=== PATIENT | male | born 1965 | race Caucasian/White ===

== ENCOUNTER 2019-10-24 09:37 | Outpatient (CLI) | payer MEDICARE, SELFPAY ==
--- NOTE | 2019-10-24 09:50 | FL_ITS ---
WS: [id number] FL barium swallow [id number] REASON FOR EXAM: DIFFICULTY SWALLOWING FLUOROSCOPY TIME: 1.2 minutes FINDINGS: History suggest aspiration but no aspiration is identified. A metal plate is seen transversing a previous fracture of the cervical spine. At fluoroscopy the vallecula is were both normal. No obstruction. No masses in the cervical thoracic area and no perforations are noted. The distal esophagus show no hiatal hernias or obstructing lesions. The stomach appeared to be normal as well as the small bowel. FL/FL barium swallow [id number] IMPRESSION: There was no abnormalities noted at during the swallowing changes. The esophagus showed no definite ulcerated areas fistulas or obstructing lesion s. The stomach and duodenum and small bowel were all normal. This was a difficult exam due to the large habitus of the patient.
== END 2019-10-24 09:38 | disposition home or self-care (01) ==
PROVIDERS: PCP Family Medicine; Visit Provider Specialist
DX: R13.10 Dysphagia, unspecified
CPT/HCPCS: 74220

== ENCOUNTER 2019-11-28 10:11 | Outpatient (CLI) | payer MEDICARE, SELFPAY ==
--- NOTE | 2019-11-28 10:22 | FL_ITS ---
WS: [id number] MODIFIED BARIUM SWALLOW HISTORY: Other dysphagia FLUOROSCOPY TIME: 2.8 minutes. Modified barium swallow was performed by the speech pathologist. Fluoroscopy was provided with the pa tient in a lateral projection. Multiple food consistencies were provided. No aspiration or laryngeal penetration. There is mild delay in swallowing in the mid cervical spine a t the level of the hardware. Barium tablet was swallowed without difficulty. FL/FL barium swallow modifd [id number] IMPRESSION: 1. Mild delay of cervical esophageal emptying is probably due to the cervical fusion hardware. 2. No aspiration or laryngeal penetration. Please see speech therapist report also for recommendations.
== END 2019-11-28 10:12 | disposition home or self-care (01) ==
LOC: RAD 10:17
PROVIDERS: PCP Family Medicine; Visit Provider Specialist
DX: R13.19 Other dysphagia (principal)
CPT/HCPCS: 74230; 92611

== ENCOUNTER → 2020-01-25 13:46 | Outpatient (BNVA) | payer MEDICARE, SELFPAY | PROVIDERS: PCP Family Medicine; Referring Provider Family Medicine; Visit Provider Specialist | DX: G43.019 Migraine without aura, intractable, without status migrainosus (principal); M96.1 Postlaminectomy syndrome, not elsewhere classified; M54.5 Low back pain; M47.816 Spondylosis without myelopathy or radiculopathy, lumbar region; M51.9 Unspecified thoracic, thoracolumbar and lumbosacral intervertebral disc disorder | CPT/HCPCS: 99204 ==

== ENCOUNTER → 2020-03-07 09:20 | Outpatient (BNVA) | payer MEDICARE, SELFPAY | PROVIDERS: PCP Family Medicine; Referring Provider Specialist; Visit Provider Anesthesiology Pain Medicine | DX: M54.42 Lumbago with sciatica, left side (principal); M54.41 Lumbago with sciatica, right side; M47.816 Spondylosis without myelopathy or radiculopathy, lumbar region; M51.9 Unspecified thoracic, thoracolumbar and lumbosacral intervertebral disc disorder; M96.1 Postlaminectomy syndrome, not elsewhere classified | CPT/HCPCS: 99203 ==

== ENCOUNTER → 2020-04-06 09:50 | Outpatient (BNVA) | payer MEDICARE, SELFPAY | PROVIDERS: PCP Family Medicine; Visit Provider Anesthesiology Pain Medicine | DX: M47.816 Spondylosis without myelopathy or radiculopathy, lumbar region (principal); M51.9 Unspecified thoracic, thoracolumbar and lumbosacral intervertebral disc disorder; M96.1 Postlaminectomy syndrome, not elsewhere classified | CPT/HCPCS: 99213 ==

== ENCOUNTER → 2020-05-22 14:13 | Outpatient (BNVA) | payer MEDICARE, SELFPAY | PROVIDERS: PCP Family Medicine; Visit Provider Specialist | DX: G43.019 Migraine without aura, intractable, without status migrainosus (principal) | CPT/HCPCS: 99213 ==

== ENCOUNTER → 2020-07-23 09:09 | Outpatient (BNVA) | payer MEDICARE, SELFPAY | PROVIDERS: PCP Family Medicine; Visit Provider Anesthesiology Pain Medicine | DX: M47.816 Spondylosis without myelopathy or radiculopathy, lumbar region (principal); M54.5 Low back pain; M51.9 Unspecified thoracic, thoracolumbar and lumbosacral intervertebral disc disorder; M96.1 Postlaminectomy syndrome, not elsewhere classified | CPT/HCPCS: 99213 ==

== ENCOUNTER → 2020-10-26 08:26 | Outpatient (BNVA) | payer MEDICARE, SELFPAY | PROVIDERS: PCP Family Medicine; Visit Provider Anesthesiology Pain Medicine | DX: M47.816 Spondylosis without myelopathy or radiculopathy, lumbar region (principal); M51.9 Unspecified thoracic, thoracolumbar and lumbosacral intervertebral disc disorder; M54.5 Low back pain; M96.1 Postlaminectomy syndrome, not elsewhere classified | CPT/HCPCS: 99213 ==

== ENCOUNTER → 2020-10-30 14:00 | Outpatient (BNVA) | payer MEDICARE, SELFPAY | PROVIDERS: PCP Family Medicine; Referring Provider Family Medicine; Visit Provider Podiatrist Foot & Ankle Surgery | DX: S92.531A Displaced fracture of distal phalanx of right lesser toe(s), initial encounter for closed fracture (principal); M79.671 Pain in right foot; X58.XXXA Exposure to other specified factors, initial encounter | CPT/HCPCS: 73630 ==

== ENCOUNTER 2020-10-30 15:11 | Outpatient (CLI) | payer MEDICARE, SELFPAY | END 2020-10-30 15:12 | disposition home or self-care (01) | LOC: SPT 15:12 | PROVIDERS: PCP Family Medicine; Visit Provider Podiatrist Foot & Ankle Surgery | DX: Z46.89 Encounter for fitting and adjustment of other specified devices (principal); M79.672 Pain in left foot | CPT/HCPCS: 97760; L4361 ==

== ENCOUNTER → 2020-11-20 13:33 | Outpatient (BNVA) | payer MEDICARE, SELFPAY | PROVIDERS: PCP Family Medicine; Visit Provider Podiatrist Foot & Ankle Surgery | DX: R52 Pain, unspecified (principal); M79.671 Pain in right foot; S92.911A Unspecified fracture of right toe(s), initial encounter for closed fracture; S92.811A Other fracture of right foot, initial encounter for closed fracture; S92.251A Displaced fracture of navicular [scaphoid] of right foot, initial encounter for closed fracture; S90.819A Abrasion, unspecified foot, initial encounter | CPT/HCPCS: 73630 ==

== ENCOUNTER → 2020-11-21 14:11 | Outpatient (BNVA) | payer MEDICARE, SELFPAY | PROVIDERS: PCP Family Medicine; Visit Provider Specialist | DX: G43.711 Chronic migraine without aura, intractable, with status migrainosus (principal); M96.1 Postlaminectomy syndrome, not elsewhere classified; M47.12 Other spondylosis with myelopathy, cervical region; Y93.9 Activity, unspecified; S06.0X9S Concussion with loss of consciousness of unspecified duration, sequela | CPT/HCPCS: 99215 ==

== ENCOUNTER → 2020-12-11 15:27 | Outpatient (BNVA) | payer MEDICARE, SELFPAY | PROVIDERS: PCP Family Medicine; Visit Provider Podiatrist Foot & Ankle Surgery | DX: S92.911A Unspecified fracture of right toe(s), initial encounter for closed fracture (principal); S90.819A Abrasion, unspecified foot, initial encounter; S92.251A Displaced fracture of navicular [scaphoid] of right foot, initial encounter for closed fracture; S92.811A Other fracture of right foot, initial encounter for closed fracture; X58.XXXA Exposure to other specified factors, initial encounter; Z46.89 Encounter for fitting and adjustment of other specified devices; S92.911D Unspecified fracture of right toe(s), subsequent encounter for fracture with routine healing; S92.811D Other fracture of right foot, subsequent encounter for fracture with routine healing; X58.XXXD Exposure to other specified factors, subsequent encounter | CPT/HCPCS: 73630; 97760; L1902 ==

== ENCOUNTER 2020-12-11 16:23 | Outpatient (CLI) | payer MEDICARE, SELFPAY | END 2020-12-11 16:24 | disposition home or self-care (01) | LOC: SPT 16:24 | PROVIDERS: PCP Family Medicine; Visit Provider Podiatrist Foot & Ankle Surgery | DX: Z46.89 Encounter for fitting and adjustment of other specified devices (principal); S92.911D Unspecified fracture of right toe(s), subsequent encounter for fracture with routine healing; S92.811D Other fracture of right foot, subsequent encounter for fracture with routine healing; X58.XXXD Exposure to other specified factors, subsequent encounter | CPT/HCPCS: 97760; L1902 ==

== ENCOUNTER → 2020-12-31 13:16 | Outpatient (BNVA) | payer MEDICARE, SELFPAY | PROVIDERS: PCP Family Medicine; Visit Provider Specialist | DX: G43.711 Chronic migraine without aura, intractable, with status migrainosus (principal); M47.12 Other spondylosis with myelopathy, cervical region; S06.0X9S Concussion with loss of consciousness of unspecified duration, sequela; V23.4XXS Motorcycle driver injured in collision with car, pick-up truck or van in traffic accident, sequela; Z71.89 Other specified counseling | CPT/HCPCS: 99214 ==

== ENCOUNTER → 2021-01-07 08:49 | Outpatient (BNVA) | payer MEDICARE, SELFPAY | PROVIDERS: PCP Family Medicine; Visit Provider Anesthesiology Pain Medicine | DX: M54.2 Cervicalgia (principal); M25.552 Pain in left hip; M51.9 Unspecified thoracic, thoracolumbar and lumbosacral intervertebral disc disorder; M47.816 Spondylosis without myelopathy or radiculopathy, lumbar region; M96.1 Postlaminectomy syndrome, not elsewhere classified; Z79.891 Long term (current) use of opiate analgesic | CPT/HCPCS: 99214 ==

== ENCOUNTER → 2021-01-21 12:58 | Outpatient (BNVA) | payer OTHER, MEDICARE, SELFPAY | PROVIDERS: PCP Family Medicine; Visit Provider Anesthesiology Pain Medicine | DX: G89.29 Other chronic pain (principal); M54.2 Cervicalgia; Z79.891 Long term (current) use of opiate analgesic | CPT/HCPCS: 62321; J1100 ==

== ENCOUNTER → 2021-04-02 12:59 | Outpatient (BNVA) | payer MEDICARE, SELFPAY | PROVIDERS: PCP Family Medicine; Visit Provider Specialist | DX: G43.711 Chronic migraine without aura, intractable, with status migrainosus (principal); M47.12 Other spondylosis with myelopathy, cervical region; R41.1 Anterograde amnesia; S06.0X9S Concussion with loss of consciousness of unspecified duration, sequela; Y93.9 Activity, unspecified; Z71.85 Encounter for immunization safety counseling | CPT/HCPCS: 99213; 99214 ==

== ENCOUNTER → 2021-07-02 07:52 | Outpatient (BNVA) | payer MEDICARE, SELFPAY | PROVIDERS: PCP Family Medicine; Visit Provider Specialist | DX: G43.709 Chronic migraine without aura, not intractable, without status migrainosus (principal); E66.8 Other obesity; Z68.41 Body mass index [BMI] 40.0-44.9, adult; Z71.85 Encounter for immunization safety counseling | CPT/HCPCS: 99213; 99214 ==

== ENCOUNTER → 2021-12-30 07:53 | Outpatient (BNVA) | payer MEDICARE, SELFPAY | PROVIDERS: PCP Family Medicine; Visit Provider Specialist | DX: G43.711 Chronic migraine without aura, intractable, with status migrainosus (principal); G47.33 Obstructive sleep apnea (adult) (pediatric); M51.9 Unspecified thoracic, thoracolumbar and lumbosacral intervertebral disc disorder; M96.1 Postlaminectomy syndrome, not elsewhere classified; E66.01 Morbid (severe) obesity due to excess calories; Z68.41 Body mass index [BMI] 40.0-44.9, adult | CPT/HCPCS: 99214 ==

== ENCOUNTER 2022-02-04 08:02 | Outpatient (CLI) | payer MEDICARE, SELFPAY ==
--- NOTE | 2022-02-04 09:00 | CTR_ITS ---
PROCEDURE INFORMATION: Exam: CT Neck Without Contrast Exam date and time: 02/04/2022 8:21 AM Age: 56 years old Clinical indication: Pain; Prior surgery; Surgery type: C spine; Patient HX: Lump behind RT ear, posterior aspect of head-bb, since 2013 neck surgery. The bigger it gets the worse his headache; Additional info: G43.711 - chronic migraine without aura, intractable, wit. . . TECHNIQUE: Imaging protocol: Computed tomography of the neck without contrast. Radiation optimization: All CT scans at this facility use at least one of these dose optimization techniques: automated exposure control; mA and/or kV adjustment per patient size (includes targeted exams where dose is matched to clinical indication); or iterative reconstruction. COMPARISON: MR cervical spin wo con* [id number] 12/21/2020 1:44 PM RADIATION DOSE METRICS: Total DLP (mGy-cm): 326.01 FINDINGS: Paranasal sinuses: Minimal right maxillary sinus base mucosal thickening is seen. Otherwise, the sinuses are clear. Mild leftward deviation of the midline nasal septum is seen. Pharynx: Unremarkable on noncontrast imaging. No significant tonsillar or nasopharyngeal adenoidal enlargement. Larynx: Unremarkable on noncontrast imaging. Normal epiglottis. Prevertebral and retropharyngeal spaces: Unremarkable on noncontrast imaging. Salivary glands: Glands are normal in size. Unremarkable on noncontrast imaging. Left parotid gland 1 x 1.4 cm soft tissue attenuation lesion is seen. This could represent an intraparotid lymph node or could represent a true mass. Recommend sonography for further assessment. Thyroid: Normal. No enlarged or calcified nodules. Lymph nodes: Some subcentimeter bilateral jugular chain, posterior cervical and posterior reticular lymph nodes are seen. Trachea: Visualized trachea is unremarkable. Lungs: Normal as visualized. Bones/joints: No acute fracture. Postsurgical changes are seen status post anterior cervical disc fusion from C5 through C7 with anterior fusion plate, vertebral body screws and disc space graft material. There is associated artifact. Medium-sized anterior inferior C4 degenerative osteophyte is seen. There is no spinal canal narrowing seen or significant foraminal stenosis on this CT. Multiple radiopaque dental restorations are seen with associated artifact. Multiple missing teeth are seen. Horizontally oriented bilateral lower 3rd molars are seen. Vasculature: Limited assessment on noncontrast imaging. Soft tissues: No significant soft tissue swelling. No obvious fluid collection by limited noncontrast evaluation. No radiopaque foreign body. Notes: The exam is limited due to lack of IV contrast administration. CT/CT neck wo con [id number] IMPRESSION: 1. Left parotid gland 1 x 1.4 cm soft tissue attenuation lesion. This could represent an intraparotid lymph node or could represent a true mass. Recommend sonography for further assessment. 2. Multiple subcentimeter lymph nodes including some posterior regular subcentimeter lymph nodes. No fluid collections or abscess. 3. Postsurgical changes of the cervical spine, as noted above. 4. Dental abnormalities, as noted above.
== END 2022-02-04 08:03 | disposition home or self-care (01) ==
LOC: RAD 08:03
PROVIDERS: PCP Family Medicine; Visit Provider Specialist
DX: G43.711 Chronic migraine without aura, intractable, with status migrainosus (principal); M47.12 Other spondylosis with myelopathy, cervical region
CPT/HCPCS: 70490

== ENCOUNTER 2022-02-06 09:39 | Outpatient (CLI) | payer MEDICARE, SELFPAY ==
--- NOTE | 2022-02-06 09:49 | MR_ITS ---
WS: [id number] MRI THORACIC SPINE WITHOUT CONTRAST TECHNIQUE: Sagittal T1, T2 and STIR imaging. Axial T2 imaging. Noncontrast imaging obtained. CLINICAL INFORMATION: SEVERE BACK PAIN COMPARISON: None. FINDINGS: Mild thoracic curve. No acute compression. No high-grade central canal stenosis. Cord signal is otto l. A few small disc protrusions in the upper and mid thoracic spine. No high-grade central canal sten osis. Mild facet arthropathy in the lower thoracic spine.Cord signal is normal. Normal caliber descen ding thoracic aorta. Normal prevertebral soft tissues. Small shallow thoracic protrusions most prominent at T3-T4, T4-T5, T5-T6, T6-T7, and T7-T8. Small central protrusion T4-T5 with slight indentation on the thoracic cord. LEFT pericentral protrus ion at T5-T6 with slight indentation on the LEFT ventral thoracic cord. RIGHT pericentral protrusion T6-T7 with slight indentation on the RIGHT ventral thoracic cord. Mild bilateral T9-T10 and RIGHT T10-T11 bony foraminal narrowing. T12 is partially excluded on this e xamination. Subligamentous disc herniation on the printer helper imaging at RIGHT C3-C4 with indentation on cervical cord and mild to moderate central canal stenosis. Cervical spine can be further evaluated with cervical sp ine MRI. MR/MR thoracic spin wo con* [id number] IMPRESSION: 1. Mild thoracic curve. No acute compression. No high-grade central canal sten osis. 2. Cord signal is normal. 3. Small shallow protrusions in the upper and mid thoracic spine with slight c ontact and indentation of the thoracic cord with no significant central canal s tenosis. 4. Mild bony foraminal narrowing bilateral T9-T10 and RIGHT T10-T11. 5. Postoperative changes in the cervical spine with ACDF C4-C6. 6. Subligamentous disc herniation RIGHT C3-C4 on the printer helper imaging with mild c entral canal stenosis and indentation on the cervical cord. This can be further evaluated with cervical spine MRI.
== END 2022-02-06 09:40 | disposition home or self-care (01) ==
LOC: RAD 09:41
PROVIDERS: PCP Family Medicine; Visit Provider Family Medicine
DX: M51.24 Other intervertebral disc displacement, thoracic region (principal); Z98.1 Arthrodesis status; M50.21 Other cervical disc displacement, high cervical region
CPT/HCPCS: 72146

== ENCOUNTER → 2022-06-24 08:09 | Outpatient (BNVA) | payer MEDICARE, SELFPAY | PROVIDERS: PCP Family Medicine; Visit Provider Specialist | DX: G43.711 Chronic migraine without aura, intractable, with status migrainosus (principal); E66.01 Morbid (severe) obesity due to excess calories; M47.12 Other spondylosis with myelopathy, cervical region; Z68.41 Body mass index [BMI] 40.0-44.9, adult; I10 Essential (primary) hypertension | CPT/HCPCS: 99215 ==

== ENCOUNTER 2022-08-08 15:31 | Outpatient (CLI) | payer MEDICARE, SELFPAY ==
--- NOTE | 2022-08-08 16:00 | MR_ITS ---
WS: [id number] MRI CERVICAL SPINE NONCONTRAST TECHNIQUE: Sagittal T1, T2 and STIR imaging. Axial T2, gradient, and fiesta imaging. CLINICAL INFORMATION: M47.12 - Other spondylosis with myelopathy, cervical region COMPARISON: MRI December 21, 2020. CT neck February 04, 2022 FINDINGS: Straightening of the normal cervical lordosis. Anterior cervical fusion C5-C7. Cord signal is normal. C2-C3: Mild disc osteophytic ridging. Moderate facet arthropathy. Mild LEFT and no significant RIGHT foraminal narrowing. Spinal canal is patent. C3-C4: RIGHT pericentral disc protrusion extending into the subarticular recess and neural foramen. S evere RIGHT foraminal narrowing. Moderate LEFT bony foraminal narrowing. Moderate facet arthropathy. Mild central canal stenosis. C4-C5: Mild disc osteophytic ridging. Mild LEFT and no significant RIGHT foraminal narrowing. Moderat e facet arthropathy. Spinal canal is patent. C5-C6: Anterior cervical fusion. Moderate LEFT and no significant RIGHT foraminal narrowing. Spinal c anal is patent. Mild facet arthropathy. C6-C7: Disc osteophytic ridging eccentric to the RIGHT. Moderate RIGHT and no significant LEFT forami nal narrowing. Spinal canal is patent. C7-T1: Disc osteophytic ridging. Moderate LEFT and mild RIGHT bony foraminal narrowing. Spinal canal is patent. Visualized brain stem structures: Normal. Prevertebral soft tissues: Normal. MR/MR cervical spin wo con* [id number] IMPRESSION: 1. Straightening of the normal cervical lordosis. Anterior cervical fusion C5- C7. 2. RIGHT subarticular and foraminal protrusion C3-C4 with severe RIGHT foramin al narrowing. This was present but appears progressed since MRI December 21, 2020. Mild central canal stenosis. 3. Moderate LEFT C5-C6, RIGHT C6-C7, and LEFT C7-T1 bony foraminal narrowing.
== END 2022-08-08 15:32 | disposition home or self-care (01) ==
LOC: RAD 15:32
PROVIDERS: PCP Family Medicine; Visit Provider Specialist
DX: M47.12 Other spondylosis with myelopathy, cervical region (principal); M50.21 Other cervical disc displacement, high cervical region; M48.02 Spinal stenosis, cervical region
CPT/HCPCS: 72141

== ENCOUNTER → 2022-09-10 07:57 | Outpatient (BNVA) | payer MEDICARE, SELFPAY | PROVIDERS: PCP Family Medicine; Referring Provider Specialist; Visit Provider Specialist | DX: G43.711 Chronic migraine without aura, intractable, with status migrainosus (principal); M47.12 Other spondylosis with myelopathy, cervical region | CPT/HCPCS: 99214 ==

== ENCOUNTER → 2022-09-18 09:47 | Outpatient (BNVA) | payer MEDICARE, SELFPAY | PROVIDERS: PCP Family Medicine; Referring Provider Specialist; Visit Provider Physician Assistant | DX: M47.12 Other spondylosis with myelopathy, cervical region (principal) | CPT/HCPCS: 72050; 99204 ==

== ENCOUNTER 2022-10-01 15:31 | Outpatient (CLI) | payer MEDICARE, SELFPAY ==
--- NOTE | 2022-10-01 15:15 | MR_ITS ---
WS: [id number] MRI LUMBAR SPINE NONCONTRAST. HISTORY: Chronic low back pain. Pain down both legs and weakness. COMPARISON: None available. TECHNIQUE: Sagittal and axial multisequence imaging is submitted. Prior anterior cervical fusion from C5 to C7. Mild narrowing of the central cervical canal. Mild stra ightening of the normal thoracic kyphosis. Mild curvature lumbar spine. Slight increase in lordosis in the distal lumbar spine. Disc spaces and vertebral body heights are well-preserved. Conus terminates normally at L1-2 disc level. T12-L1: Mild disc bulging and facet arthritis. No high-grade stenosis. Mild encroachment into the pos terior lateral thecal sac by facet disease. L1-L2: Mild facet joint arthritis with no stenosis. L2-L3: Mild annular disc bulging with moderate facet joint arthritis. No significant stenosis. Very m inimal encroachment into the subarticular recesses. L3-L4: Mild disc bulging with moderate ligamentum flavum and facet joint arthritis encroaching upon t he thecal sac. Mild to moderate central with bilateral subarticular recess and mild foraminal stenosi s. L4-L5: Mild annular disc bulging with no focal disc protrusion. Severe LEFT and moderate RIGHT facet joint arthritis. LEFT facet joint hypertrophy is encroaching upon the lateral thecal sac and into the subarticular recess. Most significant contact on the traversing LEFT L5 nerve root. Moderate central and bilateral subarticular recess stenosis, greater on the LEFT. Mild to moderate bilateral foramina l stenosis. L5-S1: Mild annular disc bulging and osteophytic ridging. Moderate bilateral facet joint arthritis. S lightly greater hypertrophy of the LEFT facet joint encroaching into the proximal foramina. Moderate LEFT foraminal stenosis. Paravertebral soft tissues are negative. MR/MR lumbar spine wo con* [id number] IMPRESSION: 1. Moderate central with bilateral subarticular recess stenosis, LEFT greater than RIGHT at L4-5. Mild to moderate bilateral foraminal stenosis. Stenosis pre dominantly due to facet joint arthritis greater on the LEFT. Most significant e ncroachment upon the LEFT L5 nerve root. 2. Moderate LEFT foraminal stenosis at L5-S1 predominantly due to facet joint arthritis. 3. Multiple moderate central with bilateral subarticular recess and mild thee inal stenosis at L3-4.
== END 2022-10-01 15:32 | disposition home or self-care (01) ==
LOC: RAD 15:41
PROVIDERS: PCP Family Medicine; Visit Provider Anesthesiology Pain Medicine
DX: M48.061 Spinal stenosis, lumbar region without neurogenic claudication (principal); M48.07 Spinal stenosis, lumbosacral region
CPT/HCPCS: 72148

== ENCOUNTER 2022-10-08 14:19 | Outpatient (CLI) | payer MEDICARE, SELFPAY ==
--- NOTE | 2022-10-08 14:30 | MR_ITS ---
WS: [id number] MRI OF THE NECK WITHOUT AND WITH GADOLINIUM ENHANCEMENT. INDICATION: Lump posterior neck TECHNIQUE: Axial T1, axial T2, coronal T2, sagittal T2, coronal T1, coronal T1 fat sat. COMPARISON: MRI December 21, 2020 FINDINGS: Deep to the palpable marker is a well-circumscribed lipoma measuring approximately 4.5 x 2. 8 x 3.5 cm. No cervical lymphadenopathy. Normal posterior fossa. Normal vascular flow voids at the skull base. Noncontrast proximal 7th and 8t h cranial nerves appear normal. Mild mucosal thickening in the ethmoid air cells. Paranasal sinuses a re otherwise well aerated. Normal posterior nasopharynx. Normal parapharyngeal fat. Normal parotid gl ands. Incidental intraparotid lymph nodes. Submandibular glands are normal. Straightening of the normal cervical lordosis with ACDF C5-C7. Palpable marker RIGHT posterior neck. MR/MR head orbits wo con [id number] IMPRESSION: 1. Deep to the palpable marker is a well-circumscribed lipoma measuring approx imately 4.5 x 2.8 x 3.5 cm. 2. No cervical lymphadenopathy. 3. Normal salivary glands.
== END 2022-10-08 14:20 | disposition home or self-care (01) ==
LOC: RAD 14:21
PROVIDERS: PCP Family Medicine; Visit Provider Physician Assistant
DX: R22.1 Localized swelling, mass and lump, neck (principal)
CPT/HCPCS: 70336; 70551

== ENCOUNTER 2022-10-14 12:05 | Outpatient (CLI) | payer MEDICARE, SELFPAY ==
--- NOTE | 2022-10-14 12:15 | US_ITS ---
WS: [id number] ULTRASOUND SOFT TISSUES RIGHT neck. HISTORY: pain COMPARISON: None available. TECHNIQUE: 2-D and color Doppler imaging is submitted. Palpable area along the RIGHT cervical chain corresponds to an intermediate mass measuring 3.9 x 1.7 x 2.4 cm. Mass is nearly isoechoic to the adjacent muscles. There is slight distortion of the adjacen t fascial planes. US/US soft tissue head neck [id number] IMPRESSION: Soft tissue mass along the RIGHT cervical chain corresponds to a lipoma measuri ng 3.9 x 1.7 x 2.4 cm.
== END 2022-10-14 12:06 | disposition home or self-care (01) ==
PROVIDERS: PCP Family Medicine; Visit Provider Physician Assistant
DX: R22.1 Localized swelling, mass and lump, neck (principal); M54.2 Cervicalgia; M51.9 Unspecified thoracic, thoracolumbar and lumbosacral intervertebral disc disorder; M47.816 Spondylosis without myelopathy or radiculopathy, lumbar region; M96.1 Postlaminectomy syndrome, not elsewhere classified
CPT/HCPCS: 76536; 99214

== ENCOUNTER → 2022-10-29 12:43 | Outpatient (BNVA) | payer MEDICARE, SELFPAY | PROVIDERS: PCP Family Medicine; Visit Provider Anesthesiology Pain Medicine | DX: M54.12 Radiculopathy, cervical region (principal) | CPT/HCPCS: 62321; J1100 ==

== ENCOUNTER → 2022-11-19 08:31 | Outpatient (BNVA) | payer MEDICARE, SELFPAY | PROVIDERS: PCP Family Medicine; Visit Provider Anesthesiology Pain Medicine | DX: M51.9 Unspecified thoracic, thoracolumbar and lumbosacral intervertebral disc disorder (principal); M47.816 Spondylosis without myelopathy or radiculopathy, lumbar region; M96.1 Postlaminectomy syndrome, not elsewhere classified; M54.2 Cervicalgia | CPT/HCPCS: 99214 ==

== ENCOUNTER → 2022-12-04 15:01 | Outpatient (BNVA) | payer MEDICARE, SELFPAY | PROVIDERS: PCP Family Medicine; Visit Provider Anesthesiology Pain Medicine | DX: M47.812 Spondylosis without myelopathy or radiculopathy, cervical region (principal) | CPT/HCPCS: 64490; 64491; 64492; J3490 ==

== ENCOUNTER → 2022-12-18 09:15 | Outpatient (BNVA) | payer MEDICARE, SELFPAY | PROVIDERS: PCP Family Medicine; Visit Provider Anesthesiology Pain Medicine | DX: M47.812 Spondylosis without myelopathy or radiculopathy, cervical region (principal); M47.22 Other spondylosis with radiculopathy, cervical region; M47.816 Spondylosis without myelopathy or radiculopathy, lumbar region; M48.061 Spinal stenosis, lumbar region without neurogenic claudication | CPT/HCPCS: 99215 ==

== ENCOUNTER → 2023-01-01 12:56 | Outpatient (BNVA) | payer MEDICARE, SELFPAY | PROVIDERS: PCP Family Medicine; Visit Provider Anesthesiology Pain Medicine | DX: M47.812 Spondylosis without myelopathy or radiculopathy, cervical region (principal) | CPT/HCPCS: 64490; 64491; 64492; J3490 ==

== ENCOUNTER → 2023-01-13 10:19 | Outpatient (BNVA) | payer MEDICARE, SELFPAY | PROVIDERS: PCP Family Medicine; Visit Provider Anesthesiology Pain Medicine | DX: M47.812 Spondylosis without myelopathy or radiculopathy, cervical region (principal); M47.22 Other spondylosis with radiculopathy, cervical region; M54.50 Low back pain, unspecified | CPT/HCPCS: 99214 ==

== ENCOUNTER → 2023-02-09 13:59 | Outpatient (BNVA) | payer MEDICARE, SELFPAY | PROVIDERS: PCP Family Medicine; Visit Provider Anesthesiology Pain Medicine | DX: M47.812 Spondylosis without myelopathy or radiculopathy, cervical region (principal) | CPT/HCPCS: 64633; 64634; J1030 ==

== ENCOUNTER → 2023-02-24 12:44 | Outpatient (BNVA) | payer MEDICARE, SELFPAY | PROVIDERS: PCP Family Medicine; Visit Provider Anesthesiology Pain Medicine | DX: M47.812 Spondylosis without myelopathy or radiculopathy, cervical region (principal) | CPT/HCPCS: 64633; 64634; J1030 ==

== ENCOUNTER → 2023-03-16 09:06 | Outpatient (BNVA) | payer MEDICARE, SELFPAY | PROVIDERS: PCP Family Medicine; Visit Provider Anesthesiology Pain Medicine | DX: M47.812 Spondylosis without myelopathy or radiculopathy, cervical region; M47.22 Other spondylosis with radiculopathy, cervical region | CPT/HCPCS: 99214 ==

== ENCOUNTER → 2023-04-14 14:20 | Outpatient (BNVA) | payer MEDICARE, SELFPAY | PROVIDERS: PCP Family Medicine; Visit Provider Anesthesiology Pain Medicine | DX: M54.16 Radiculopathy, lumbar region (principal); M47.812 Spondylosis without myelopathy or radiculopathy, cervical region; M47.816 Spondylosis without myelopathy or radiculopathy, lumbar region | CPT/HCPCS: 62323; J1040; Q9967 ==

== ENCOUNTER → 2023-04-28 09:44 | Outpatient (BNVA) | payer MEDICARE, SELFPAY | PROVIDERS: PCP Family Medicine; Visit Provider Anesthesiology Pain Medicine | DX: M47.812 Spondylosis without myelopathy or radiculopathy, cervical region (principal); M47.22 Other spondylosis with radiculopathy, cervical region | CPT/HCPCS: 99214 ==

== ENCOUNTER → 2023-07-29 10:22 | Outpatient (BNVA) | payer MEDICARE, OTHER, SELFPAY | PROVIDERS: PCP Family Medicine; Visit Provider Anesthesiology Pain Medicine | DX: M47.812 Spondylosis without myelopathy or radiculopathy, cervical region (principal); M47.22 Other spondylosis with radiculopathy, cervical region; M48.061 Spinal stenosis, lumbar region without neurogenic claudication | CPT/HCPCS: 99214 ==

== ENCOUNTER → 2023-09-09 08:09 | Outpatient (BNVA) | payer MEDICARE, OTHER, SELFPAY | PROVIDERS: PCP Family Medicine; Visit Provider Specialist | DX: G43.711 Chronic migraine without aura, intractable, with status migrainosus (principal); M47.12 Other spondylosis with myelopathy, cervical region; M47.816 Spondylosis without myelopathy or radiculopathy, lumbar region | CPT/HCPCS: 99214 ==

== ENCOUNTER → 2024-03-16 08:39 | Outpatient (BNVA) | payer MEDICARE, OTHER, SELFPAY | PROVIDERS: PCP Family Medicine; Visit Provider Specialist | DX: R29.90 Unspecified symptoms and signs involving the nervous system (principal); G43.711 Chronic migraine without aura, intractable, with status migrainosus; M47.12 Other spondylosis with myelopathy, cervical region; M47.816 Spondylosis without myelopathy or radiculopathy, lumbar region; G25.0 Essential tremor | CPT/HCPCS: 99214 ==